=== PATIENT | male | born 1975 | race Caucasian/White ===

== ENCOUNTER → 2016-11-19 | Outpatient (REF) ==
[~2016-11-19] MED LIST: ADVIL200 MG PO; ALLEGRA 60MG TA60 MG PO; FLOMAX 0.40.4 MG/CAP PO; FLONASEALLERGY; LEXAPRO20 MG PO; NORCO 325 MG-51 TAB PO
== END ==
LOC: WSOH 08:00
DX: Z00.00 Encounter for general adult medical examination without abnormal findings (principal)

== ENCOUNTER → 2016-11-27 | Outpatient (REF) | LOC: WSOH 13:05 | DX: Z00.00 Encounter for general adult medical examination without abnormal findings (principal) ==

== ENCOUNTER → 2017-07-16 | Outpatient (CLI) | payer OTHER | LOC: COL.RAD 07:51 | DX: M51.17 Intervertebral disc disorders with radiculopathy, lumbosacral region (principal); M89.38 Hypertrophy of bone, other site ==

== ENCOUNTER → 2017-08-19 | Outpatient (CLI) | payer OTHER | LOC: MHCPAIN 14:11 | DX: G89.29 Other chronic pain (principal); M47.27 Other spondylosis with radiculopathy, lumbosacral region; M53.3 Sacrococcygeal disorders, not elsewhere classified; Z87.891 Personal history of nicotine dependence | CPT/HCPCS: G0463 ==

== ENCOUNTER → 2017-08-20 | Outpatient (CLI) | payer OTHER | LOC: MHCPAIN 08:30 | DX: G57.11 Meralgia paresthetica, right lower limb (principal) | CPT/HCPCS: J1040 ==

== ENCOUNTER → 2017-09-09 | Outpatient (CLI) | payer OTHER | LOC: COL.RAD 09:27 | DX: M41.86 Other forms of scoliosis, lumbar region (principal); M79.604 Pain in right leg ==

== ENCOUNTER → 2017-09-11 | Outpatient (CLI) | payer OTHER | LOC: MHCPAIN 08:20 | DX: G89.29 Other chronic pain (principal); M47.817 Spondylosis without myelopathy or radiculopathy, lumbosacral region; Z87.891 Personal history of nicotine dependence | CPT/HCPCS: G0463 ==

== ENCOUNTER → 2017-10-03 | Outpatient (CLI) | payer OTHER | LOC: MHCPAIN 09:04 | DX: M47.817 Spondylosis without myelopathy or radiculopathy, lumbosacral region (principal) | CPT/HCPCS: J1040; Q9967 ==

== ENCOUNTER → 2017-10-22 | Outpatient (CLI) | payer OTHER | LOC: MHCPAIN 09:24 | DX: G89.29 Other chronic pain (principal); M47.817 Spondylosis without myelopathy or radiculopathy, lumbosacral region; Z87.891 Personal history of nicotine dependence | CPT/HCPCS: G0463 ==

== ENCOUNTER 2018-01-30 20:56 | Emergency (ER) | payer SELFPAY ==
[~2018-01-30] VITALS: Ht 182.9 cm; Wt 81.8 kg
[2018-01-30 20:57] VITALS: TEMP 97.7
[2018-01-30] MEDS ORDERED: NORCO 325 MG-51 TAB PO (21:57)
[2018-01-30] MEDS ORDERED: CRUTCHES MC (22:13)
[2018-01-30 22:30] VITALS: BP 144/89; PULSE 90
== END 2018-01-30 22:38 | disposition home or self-care (01) ==
LOC: COL.ER 20:56
DX: S82.891A Other fracture of right lower leg, initial encounter for closed fracture (principal); F17.210 Nicotine dependence, cigarettes, uncomplicated; Z79.51 Long term (current) use of inhaled steroids; Y04.8XXA Assault by other bodily force, initial encounter; Y92.89 Other specified places as the place of occurrence of the external cause
CPT/HCPCS: Q4045

== ENCOUNTER → 2019-08-06 | Outpatient (CLI) | payer OTHER, BC ==
[~2019-08-06] MED LIST changes: +CRUTCHES MC
== END ==
LOC: COL.RAD 06:53
DX: M51.17 Intervertebral disc disorders with radiculopathy, lumbosacral region (principal)

== ENCOUNTER → 2022-09-05 | Outpatient (CLI) | payer BC | LOC: COL.RAD 09:57 | DX: J34.89 Other specified disorders of nose and nasal sinuses (principal) ==